=== PATIENT | male | born 1990 | race Caucasian/White ===

== ENCOUNTER 2024-02-02 13:29 | Emergency (ER) | payer BC, OTHER ==
[~2024-02-02] VITALS: Ht 172.7 cm; Wt 64.6 kg
[2024-02-02] MEDS ORDERED: IMIQUIMOD1 EACH TOP (13:55)
[2024-02-02 14:30] VITALS: BP 130/88
== END 2024-02-02 14:28 | disposition home or self-care (01) ==
LOC: ED 13:29
DX: K64.4 Residual hemorrhoidal skin tags (principal); K64.8 Other hemorrhoids; Z79.899 Other long term (current) drug therapy
CPT/HCPCS: 99282

== ENCOUNTER 2024-03-13 16:32 | Emergency (ER) | payer BC, OTHER ==
[~2024-03-13] VITALS: Ht 172.7 cm; Wt 67.8 kg
[~2024-03-13 16:32] MED LIST: IMIQUIMOD1 EACH TOP
[2024-03-13 17:23] VITALS: BP 131/84
== END 2024-03-13 17:23 | disposition home or self-care (01) ==
LOC: ED 16:32
DX: Z02.79 Encounter for issue of other medical certificate (principal); K64.9 Unspecified hemorrhoids; Z79.899 Other long term (current) drug therapy
CPT/HCPCS: 81001; 99282

== ENCOUNTER 2024-06-22 08:48 | Day surgery (SDC) | payer OTHER ==
[2024-05-25 08:31] VITALS: BP 144/84
[2024-06-03 07:42] VITALS: BP 126/71
--- NOTE | 2024-06-03 11:17 | NUR ---
LE 0742 VITALS BEING TAKEN FOR PT. DISCUSSED PREP WITH PATIENT, ASKED ABOUT HOW PREP WENT AND IF PT HAD ANY SOLID BOWEL MOVEMENTS TODAY. PT STATES THAT HE ATE PIZZA YESTERDAY AND THAT THIS MORNING HE HAD A SOLID BOWEL MOVEMENT. THAT PATIENT HAD BEEN CONSTIPATED FOR 3 DAYS PRIOR AND BOWEL MOVEMENTS HAD BEEN SOILD AND FORMED. LE 0745 CALLED OR [address] YANES, SPOKE TO SURGERY RN WHO PASSED INFORMATION TO DR YANES. DR YANES STATES TO CANCEL THE PROCEDURE AND PT NEEDS TO RESCHEDULE. LE 0750 SPOKE WITH PATIENT AND INFORMED PT THAT I HAD SPOKEN TO DOCTOR AND DOCTOR SAID TO CANCEL DUE TO PT STILL HAVING SOLID BOWEL MOVEMENTS THIS MORNING. PT THEN BECAME AGITATED AND USING RAISED VOICE EXPRESSSED THAT THE RN DID NOT UNDERSTAND, AND THAT HIS BOWEL MOVEMENTS WERE NOT SOLID. I SPOKE WITH PT FURTHER, PT STILL HAD FORMED BOWEL MOVEMENT THIS MORNING, PT STATES 'IT FELL APART SOME THOUGH.' RN EDUCATED PATIENT THAT PATIENT SHOULD BE HAVING LIQUID STOOL ONLY, IF PT IS HAVING SOLID STOOL THEY WILL NOT BE ABLE TO SEE ANYTHING DURING THE PROCEDURE AND NOT ABLE TO COMPLETE IT. PT INSISTS ON DOING THE PROCEDURE. THIS RN THEN SPOKE TO JOE MOLINA RN. SUZANNE Gomez RN ALSO SPOKE WITH PT, WHERE PT BECAME MORE AGITATED AND CONTINUES TO INSIST ON ATTEMPTING THE PROCEDURE. EXPLAINED TO THE PATIENT THAT IF THE BOWEL PREP IS INADEQUATE THEN THEY WILL NOT BE ABLE TO COMPLETE THE PROCEDURE AND THEY WOULD HAVE TO RESCHEDULE PATIENT TO REPEAT THE PROCEDURE. PT STATES UNDERSTANDING BUT CONTINUES TO INSIST ON DOING THE PROCEDURE TODAY. LE 0810 GARMENT STEAMER SUZANNE Gomez, SPOKE TO MICHELLE OR GARMENT STEAMER ABOUT SITUATION. OR GARMENT STEAMER SPOKE WITH PATIENT ABOUT NEEDING TO RESCHEDULE. DUE TO CIRCUSTANCES IRIS WAS FILED.
[~2024-06-22] VITALS: Ht 172.7 cm; Wt 68.2 kg
[~2024-06-22 08:48] MED LIST changes: +IBLOOD GLUCOSE TEST STRIP 1 EA TEST VI PRN; +LACTATED RINGER'S 1,000 ML IV SCH; +LIDOCAINE HCL 1% 5 ML SDV INJ ONE; +MIDAZOLAM HCL 5 MG/5 ML VIAL IV PRN; +fentaNYL citrate 100 MCG/2 ML VIAL IV PRN; +propofoL 200 MG/20 ML VIAL ONE
[2024-06-22 08:54] VITALS: BP 125/86
[2024-06-22] MEDS ORDERED: LACTATED RINGER'S 1,000 ML IV ONE (09:39)
--- NOTE | 2024-06-22 10:17 | NUR ---
06/22/24 Samina Rendon 0946- PT PRESENTS TO PACU LEFT LATERAL POSITION, NON REACTIVE TO STIMULUS. OPA IN PLACE, BREATHING EVEN AND NON LABORED, O2 AT 10L PER MASK. ABD SOFT, NON DISTENDED. LR INFUSING TO RFA IV. ALL MONITORS IN PLACE. 0959- 2ND LITER LR STARTED, O2 DOWN TO 6L PER MASK. CONTINUES TO REST. NON REACTIVE. 1003- PT REACTIVE TO VERBAL STIMULI, OPA REMOVED AT THIS TIME. O2 REMAINS IN PLACE. 1004- PT MOVED TO ROOM AIR, PT PULLING AT MASK.
[2024-06-22 10:26] VITALS: BP 121/92
--- NOTE | 2024-06-22 11:20 | OR ---
[facility] [address] [place], [place] [address] Signed DATE OF OPERATION: 06/22/2024 SURGEON: Sarath Powell MD PREOPERATIVE DIAGNOSES: 1. Rectal bleeding. 2. Hemorrhoids. POSTOPERATIVE DIAGNOSIS: Minimal to moderate internal and external hemorrhoids. PROCEDURE: Colonoscopy without biopsy. ESTIMATED BLOOD LOSS: None. INDICATIONS: [place] is a 33-year-old gentleman asked to see me for rectal bleeding associated with hemorrhoids. 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 It sounds like he is unemployed currently. He said he was having trouble with bleeding through his clothing. He wanted to see me because I helped his father with an inguinal hernia. Apparently, he got referred to another surgeon, but the appointment was never made. He said he has been in the emergency room twice because of the rectal bleeding. He was told he had internal and external hemorrhoids. He was given hydrocortisone suppositories which have helped. He has no family history of colon cancer, colon polyps or inflammatory bowel disease. In the office I had given [place] a brochure on colonoscopy. We had reviewed the nature of the test. There is risk including, but not limited to gas bloating, crampy abdominal pain, bleeding, perforation requiring surgery, and missed diagnosis. We also reviewed the written instructions for the bowel prep line by line. He also understands the need for monitored anesthesia care given his daily use of marijuana. He had expressed understanding and wished to proceed. He understands an adult person has to take him home afterwards. It looks like that will be his father. DESCRIPTION OF PROCEDURE: [place] was taken into our endoscopy suite and placed in the left lateral decubitus position. He was given IV propofol per our nurse market investigator. A digital rectal exam was performed. He does have minimal to moderate external hemorrhoids. A little more on the left than on the right. He had good sphincter tone. There was no pruritus ani. Electronically Signed By: SARATH POWELL MD 06/22/24 1120 PATIENT NAME: JAMAICA SEGURA OPERATIVE REPORT DATE OF : 89 REPORT #: [id number] PHYSICIAN: SARATH POWELL MD PCP: VERONICA AMARAL MD REPORT IS CONFIDENTIAL AND NOT TO BE RELEASED WITHOUT AUTHORIZATION [facility] [address] [place], [place] [address] Signed There were no masses. The adult colonoscope had been introduced and advanced all the way around into the cecum under direct visualization of camera without difficulty. His whole colon is about 90 cm in length. His prep was quite good. We could easily see the appendiceal orifice and ileocecal valve. Scope was slowly withdrawn. We took several pictures throughout for photodocumentation. No pathology throughout the entire colon. The rectum was unremarkable. Upon retroflexion of scope he does have minimal to moderate internal hemorrhoid columns. After this, the gas was suctioned out, colonoscope removed. [place] tolerated the procedure quite well. RECOMMENDATIONS: [place] is welcome to follow up my office as needed if he wants to go over hemorrhoids once again. Otherwise, he would return for routine screening colonoscopy at age 47. Sarath Powell MD ALB/MODL /[id number] cc: Dr. Veronica Powell MD Patient Chart Copies: SARATH POWELL MD ~ Electronically Signed By: SARATH POWELL MD 06/22/24 1120 PATIENT NAME: JAMAICA SEGURA OPERATIVE REPORT DATE OF : 89 REPORT #: [id number] PHYSICIAN: SARATH POWELL MD PCP: VERONICA AMARAL MD REPORT IS CONFIDENTIAL AND NOT TO BE RELEASED WITHOUT AUTHORIZATION
== END 2024-06-22 10:30 | disposition home or self-care (01) ==
LOC: DS 08:48
PROVIDERS: ATTEND Colon & Rectal Surgery
PROC: 0DJD8ZZ Inspection of Lower Intestinal Tract, Via Natural or Artificial Opening Endoscopic (ICD-10-PCS; principal; 2024-06-22 09:25)
DX: K64.8 Other hemorrhoids (principal); K64.4 Residual hemorrhoidal skin tags; F17.200 Nicotine dependence, unspecified, uncomplicated; F12.10 Cannabis abuse, uncomplicated
CPT/HCPCS: 00811; J2704; J7121